=== PATIENT | female | born 1950 | race Caucasian/White ===

== ENCOUNTER 2022-12-28 09:29 | Emergency (ER) | payer MEDICARE ==
[~2022-12-28] VITALS: Ht 157.5 cm; Wt 68.2 kg
[2022-12-28] MEDS ORDERED: GABA-1216 PO (09:43)
[2022-12-28] MEDS ORDERED: LIDOCAINE 5% TRANSDERMAL PATCH TD ONE (12:00)
[2022-12-28] MEDS ORDERED: BACLOFEN 10 MG TABLET PO ONE (12:00)
[2022-12-28] MEDS ORDERED: KETOROLAC TROMETHAMINE 30 MG/ML VIAL IM ONE (12:00)
[2022-12-28] MEDS ORDERED: BACL5TAB PO (12:49)
[2022-12-28] MEDS ORDERED: ACET-3385 PO (12:50)
[2022-12-28 14:00] VITALS: BP 144/75
== END 2022-12-28 14:16 | disposition home or self-care (01) ==
LOC: EMS 09:29
DX: G57.01 Lesion of sciatic nerve, right lower limb (principal); E11.9 Type 2 diabetes mellitus without complications; Z98.890 Other specified postprocedural states
CPT/HCPCS: 99283; 82962; 96372; J1885